=== PATIENT | female | born 1940 | race Caucasian/White ===

== ENCOUNTER → 2017-05-21 | Outpatient (CLI) | payer OTHER | LOC: FIMAGING 09:19 | PROVIDERS: ATTEND Internal Medicine | DX: Z12.31 Encounter for screening mammogram for malignant neoplasm of breast (principal) | CPT/HCPCS: G0202 ==

== ENCOUNTER → 2018-05-23 | Outpatient (CLI) | payer OTHER | LOC: FIMAGING 12:00 | PROVIDERS: ATTEND Internal Medicine | DX: Z12.31 Encounter for screening mammogram for malignant neoplasm of breast (principal) ==

== ENCOUNTER 2018-07-29 08:45 | Observation (INO) | payer OTHER ==
[2018-07-29] MEDS ORDERED: ceFAZolin 2 GM/DEXTROSE 100 ML IV ONE (09:12)
--- NOTE | 2018-07-29 09:17 | EDPHY ---
H & P Stated Complaint: FELL WALKING DOG ? OPEN FX L 5TH DIGIT/HIT HEAD/?SYNCOPE POST - Personal History Current Tetanus Diphtheria and Acellular Pertussis (TDAP): Yes - Medical/Surgical History Hx Asthma: No Hx Chronic Respiratory Disease: No Hx Diabetes: No Hx Cardiac Disease: No Hx Renal Disease: No Hx Cirrhosis: No Hx Alcoholism: No Hx HIV/AIDS: No Hx Splenectomy or Spleen Trauma: No Other PMH: neg - Social History Smoking Status: Never smoked Time Seen by Provider: 07/29/18 08:57 HPI/ROS: CHIEF COMPLAINT: Head injury, left hand injury HISTORY OF PRESENT ILLNESS: 78-year-old female arrives via private vehicle complaining primarily of left 5th digit injury. She reports that approximately 8:10 a.m. this morning she was walking her dog, was looking at her phone, she sustained a mechanical fall impacting her left hand and had a noted laceration and visible osseous structures to the left 5th digit palmar aspect. She thinks that she may have impacted her head. She went home and few minutes later her found her laying on the floor after he heard an audible "thump". Patient was noted to have a frontal hematoma. No repetitive questioning or postictal behavior. No seizure. There are no prolonged periods of immobility on the floor. She is not currently complaining of headache. She denies midline C-spine pain. Denies alcohol or drug use. Denies chest pain. Denies dyspnea. PRIMARY CARE PROVIDER: Dr. Cata Gomez REVIEW OF SYSTEMS: 10 systems reviewed and negative with the exception of the elements mentioned in the history of present illness PAST MEDICAL/SURGICAL HISTORY: no anticoagulant use, no relevant medical/ surgical history SOCIAL HISTORY: denies alcohol use at time of incident PHYSICAL EXAM 1) GENERAL: Well-developed, well-nourished, alert and oriented. Appears to be in no acute distress. Answering questions appropriately. 2) HEAD: [Normocephalic, frontal hematoma noted 3) HEENT: Pupils equal, round, reactive to light bilaterally. Negative Horners. Nasopharynx, oropharynx, clear. No deformity or angulation of nose. No septal hematoma. No rhinorrhea. No oral trauma. Ears bilaterally with normal tympanic membranes. No hemotympanum. No fluid or blood in the external auditory canal. No raccoon eyes. No Urban sign. Teeth are normally aligned with no gross malocclusion, TMJ bilaterally nontender, facial bones nontender including the zygomatic arch, maxilla mandible. 4) NECK: No cervical collar is on. Posterior cervical spine is nontender, no stepoff, no effusion. Full range of motion which does not elicit any midline cervical spine pain, no posterior midline tenderness, no step-off. 5) LUNGS: Clear to auscultation bilaterally, no wheezes, no rhonchi, no retractions. No obvious signs of trauma. No chest wall pain. No flaring, no grunting. Moving symmetrically. No crepitus. 6) HEART: [Regular rate and rhythm, 7) ABDOMEN: No guarding, no rebound, no focal tenderness, no peritoneal signs, no signs of trauma, no ecchymosis 8) MUSCULOSKELETAL: Left hand: Palmar aspect left 5th digit laceration and visible osseous structures. Otherwise, Moving all extremities, no focal areas of tenderness, no obvious trauma. 9) BACK: No midline vertebral tenderness, no fluctuance, no step-off, no obvious trauma, no visual or palpable abnormality. 10) SKIN: Laceration left 5th digit DIFFERENTIAL DIAGNOSIS: Not necessarily in any particular order, my differential diagnosis includes, but is not limited to, concussion, skull fracture, intraparenchymal contusion, subarachnoid, subdural and epidural hematoma. The patient understands that this diagnosis is provisional and can never be 100% accurate. (Lorena Drake) Constitutional: Initial Vital Signs Temperature (C) 36.5 C 07/29/18 08:53 Heart Rate 73 07/29/18 08:53 Respiratory Rate 16 07/29/18 08:53 Blood Pressure 156/78 H 07/29/18 08:53 O2 Sat (%) 98 07/29/18 08:53 O2 Delivery Mode Room Air Allergies/Adverse Reactions: No Known Allergies Allergy (Verified 07/29/18 08:52) Home Medications: Medication Instructions Recorded Aspirin [Aspirin 81mg (*)] 81 mg PO DAILY 07/29/18 Ibuprofen [Motrin (*)] 600 mg PO Q6HRS PRN tab 07/29/18 oxyCODONE IR [Oxycodone Ir (*)] 5 mg PO Q4HRS PRN #10 tab 07/29/18 Medical Decision Making - Diagnostics EKG Interpretation: 12-lead EKG interpreted by me; official reading is in computer system. My interpretation is sinus rhythm rate 66 normal intervals and no ischemic changes (Shlomo Kingsley) Imaging Results: Imaging Impressions Chest X-Ray 07/29/18 09:11 Impression: No acute findings in the chest. Hand X-Ray 07/29/18 09:11 Impression: Dislocation of the 5th proximal interphalangeal joint, possibly open. Head CT 07/29/18 09:12 Impression: 1. Right frontal scalp hematoma with no acute intracranial findings. 2. Diffuse cerebral atrophy with periventricular and subcortical low attenuation consistent with chronic microvascular ischemic gliosis. Findings discussed with Lorena Drake 07/29/2018 at 10:25. Hand X-Ray 07/29/18 10:36 Impression: Interval reduction of 5th proximal interphalangeal joint dislocation , with mild dorsal angulation with no visible fracture. Imaging Impressions Chest X-Ray 07/29/18 09:11 Impression: No acute findings in the chest. Hand X-Ray 07/29/18 09:11 Impression: Dislocation of the 5th proximal interphalangeal joint, possibly open. Head CT 07/29/18 09:12 Impression: 1. Right frontal scalp hematoma with no acute intracranial findings. 2. Diffuse cerebral atrophy with periventricular and subcortical low attenuation consistent with chronic microvascular ischemic gliosis. Findings discussed with Lorena Drake 07/29/2018 at 10:25. Hand X-Ray 07/29/18 10:36 Impression: Interval reduction of 5th proximal interphalangeal joint dislocation , with mild dorsal angulation with no visible fracture. Images reviewed myself (Lorena Drake) Procedures: 10:30 a.m.: Procedure: Dislocation reduction. The dislocation of the left 5th digit was reduced using traction and counter traction technique without complications. Post reduction the patient's neurovascular exam is normal. Post reduction x-ray demonstrates reduction of the joint to the anatomic position. The procedure was performed by myself. 11:29 a.m.: Procedure: Laceration repair. I explained the indications, risks and benefits for both laceration repair and anesthetic administration. Verbal consent was obtained from the patient. The laceration on the left 5th digit was anesthetized using 0.5% bupivicaine without epinephrine digital nerve block. After anesthetic administered the patient was observed for a period of time and had no apparent adverse effects. The wound was cleaned, prepped, draped in normal sterile fashion and explored to its base. No foreign body seen, no foreign bodies palpated. There were no deep structures involved. No tendon injury was identified. The wound was closed with 4 simple interrupted 5 O Prolene suture. The wound repair was simple. The procedure was performed by myself. Patient has been informed that scarring will occur, although efforts have been made to minimize this. Procedure: Splint A and aluminum finger splint was applied by ER ergonomics technician. After application of the splint I returned and re-examined the patient. The splint was adequately immobilizing the joint and distal to the splint the patient's circulation and sensation were intact. (Lorena Drake) ED Course/Re-evaluation: 9:16 a.m.: Patient is complaining of hand injury as well as syncopal episode. I think that vasovagal syncope secondary to her fracture is less than likely as she describes a discrete period of time, 20-30 minutes after the injury that she was found on the floor by her and also notes that she was experiencing minimal amount of pain. Head CT ordered in this patient for trauma for the following indication: Greater than 65 years old. 11:00 a.m.: Re-evaluation. Recommend patient be admitted for syncope which I think is less than likely secondary to vasovagal syncope. 11:20 a.m.: Consultation with hospitalist Joanne, admit to PCU Dr. Maki for evaluation of syncope 11:24 a.m.: Consultation with on-call hand surgery Dr. Melissa Alfonso who recommended irrigation and wound reapproximation, splinting, antibiotics, follow up in the office later this week as no inpatient orthopedic management indicated at this time. (Lorena Drake) - Data Points Laboratory Results: Laboratory Results 07/29/18 10:43 07/29/18 09:50 07/29/18 07/29/18 07/29/18 10:43 09:58 09:50 WBC 5.59 10^3/uL 10^3/uL (3.80-9.50) RBC 4.54 10^6/uL 10^6/uL (4.18-5.33) Hgb 14.7 g/dL g/dL (12.6-16.3) Hct 43.1 % % (38.0-47.0) MCV 94.9 fL fL (81.5-99.8) MCH 32.4 pg pg (27.9-34.1) MCHC 34.1 g/dL g/dL (32.4-36.7) RDW 12.0 % % (11.5-15.2) Plt Count 220 10^3/uL 10^3/uL (150-400) MPV 10.7 fL fL (8.7-11.7) Neut % (Auto) 71.0 % % (39.3-74.2) Lymph % (Auto) 16.8 % % (15.0-45.0) [place] % (Auto) 8.9 % % (4.5-13.0) Eos % (Auto) 2.1 % % (0.6-7.6) Baso % (Auto) 0.7 % % (0.3-1.7) Nucleat RBC Rel Count 0.0 % % (0.0-0.2) Absolute Neuts (auto) 3.96 10^3/uL 10^3/uL (1.70-6.50) Absolute Lymphs (auto) 0.94 10^3/uL L 10^3/uL (1.00-3.00) Absolute Monos (auto) 0.50 10^3/uL 10^3/uL (0.30-0.80) Absolute Eos (auto) 0.12 10^3/uL 10^3/uL (0.03-0.40) Absolute Basos (auto) 0.04 10^3/uL 10^3/uL (0.02-0.10) Absolute Nucleated RBC 0.00 10^3/uL 10^3/uL (0-0.01) Immature Gran % 0.5 % % (0.0-1.1) Immature Gran # 0.03 10^3/uL 10^3/uL (0.00-0.10) Sodium 140 mEq/L mEq/L (135-145) Potassium 4.4 mEq/L mEq/L (3.3-5.0) Chloride 106 mEq/L mEq/L (97-110) Carbon Dioxide 23 mEq/l mEq/l (22-31) Anion Gap 11 mEq/L mEq/L (8-16) BUN 23 mg/dL mg/dL (7-23) Creatinine 0.7 mg/dL mg/dL (0.6-1.0) Estimated GFR > 60 Glucose 95 mg/dL mg/dL (70-100) Calcium 9.2 mg/dL mg/dL (8.5-10.4) POC Troponin I 0.00 ng/mL ng/mL (0.00-0.08) 07/29/18 09:50 WBC REJ RBC TNP Hgb TNP Hct TNP MCV TNP MCH TNP MCHC TNP RDW TNP Plt Count TNP MPV TNP Neut % (Auto) TNP Lymph % (Auto) TNP [place] % (Auto) TNP Eos % (Auto) TNP Baso % (Auto) TNP Nucleat RBC Rel Count TNP Absolute Neuts (auto) TNP Absolute Lymphs (auto) TNP Absolute Monos (auto) TNP Absolute Eos (auto) TNP Absolute Basos (auto) TNP Absolute Nucleated RBC TNP Immature Gran % TNP Immature Gran # TNP Sodium Potassium Chloride Carbon Dioxide Anion Gap BUN Creatinine Estimated GFR Glucose Calcium POC Troponin I Medications Given: Discontinued Medications Cefazolin Sodium/Dextrose (Ancef 2 Gm) 100 mls @ 200 mls/hr IV EDNOW ONE PRN Reason: Protocol Stop: 07/29/18 09:41 Last Admin: 07/29/18 09:35 Dose: 100 mls Influenza Virus Vaccine Quadrival (Flulaval Quad [id number] (6mo+)) 0.5 ml IM .ONCE ONE Stop: 07/29/18 14:33 Last Admin: 07/29/18 14:52 Dose: 0.5 ml Point of Care Test Results: Chemistry 07/29/18 09:58 POC Troponin I 0.00 ng/mL ng/mL (0.00-0.08) Departure - Departure Disposition: [facility] ([place], [place])s Inpatient Acute Clinical Impression: Syncope and collapse, Open dislocation left 5th digit Head injury due to trauma Qualifiers: Encounter type: initial encounter Qualified Code(s): S09.90XA - Unspecified injury of head, initial encounter Condition: Fair
--- NOTE | 2018-07-29 10:37 | CPEKG ---
Test Reason : OPEN Blood Pressure : / mmHG Vent. Rate : 066 BPM Atrial Rate : 066 BPM P-R Int : 165 ms QRS Dur : 088 ms QT Int : 411 ms P-R-T Axes : 047 000 022 degrees QTc Int : 431 ms Sinus rhythm Confirmed by Shlomo Kingsley ([id number]) on 07/29/2018 10:37:18 AM Referred By: Confirmed By:Shlomo Kingsley
[2018-07-29 11:03] LABS: PLATELET COUNT 220 10^3/uL (150-400)
[2018-07-29] MEDS ORDERED: ONDANSETRON DISINTEGRATING 4 MG TAB PO PRN (13:08)
[2018-07-29] MEDS ORDERED: ACETAMINOPHEN 325 MG TAB PO PRN (13:08)
[2018-07-29] MEDS ORDERED: ONDANSETRON 4 MG/2 ML VIAL IVP PRN (13:08)
[2018-07-29] MEDS ORDERED: oxyCODONE IR 5 MG TAB PO PRN (14:13)
[2018-07-29] MEDS ORDERED: IBUPROFEN 600 MG TAB PO PRN (14:13)
--- NOTE | 2018-07-29 14:47 | GHP ---
DATE OF ADMISSION: 07/29/2018 CHIEF COMPLAINT: Fall. HISTORY: This is a 78-year-old female with really minimal past medical history, who presents status post fall and then subsequent syncopal event. Patient notes that she was out walking her neighbor's dog, when she was looking at her phone and tripped over the sidewalk. She fell onto her left side an d had suffered a significant injury to her left hand and particularly her left 5th digit, where she w as able to see bone. She immediately did not feel well and felt worse looking at her finger. She de cided she had better walk back to the house and lie down in bed. She was almost to her bed when she lost consciousness and fell to the floor. At that time, she hit her head on the floor. Her heard her hit the floor and came up to check on her. She notes she immediately felt back to normal a fter fainting. She has never fainted before. She did not have any chest pain preceding or following this event. She currently feels fine, has walked several times since this incident without any issu es. PAST MEDICAL HISTORY: Denies. PAST SURGICAL HISTORY: Denies. SOCIAL HISTORY: Patient is a nonsmoker. She lives with her . She drinks alcohol rarely, not today. FAMILY HISTORY: Parents are . REVIEW OF SYSTEMS: 10-point review of systems obtained and negative except as per HPI. HOME MEDICATIONS: Include daily aspirin. ALLERGIES: No known drug allergies. PHYSICAL EXAM: VITAL SIGNS: BP 149/72, heart rate 75, respiratory rate 20, O2 sats 98% on room air, temperature is 36.6. GENERAL APPEARANCE: This is an elderly female. She is awake and al ert. She is in no acute distress. EYES: Anicteric. HENT: There is an area of swelling above her right orbit, otherwise atraumatic. Oropharynx is clear. CARDIOVASCULAR: Regular rate and rhythm, n o MRG. PULMONARY: CTA bilaterally. Normal work of breathing. ABDOMEN: Soft, nontender, nondisten ded. EXTREMITIES: No clubbing, cyanosis or edema. There is a splint on her left 5th digit and some scattered bruises on her left side. EXTREMITIES: No clubbing, cyanosis or edema. SKIN: Warm, dry , well perfused. NEURO/PSYCH: Oriented, appropriate, pleasant. CLINICAL DATA: Labs reviewed, notable for a white blood cell count of 5.5, hematocrit 43. Troponin is 0.00. Chemistry is within normal limits. Chest x-ray, personally reviewed and interpreted, shows no acute findings. EKG, personally reviewed and interpreted, shows sinus rhythm without any ischemic changes. Shoulder x-ray shows no fractures, normal alignment. Hand x-ray post relocation of the finger shows relatively normal alignment of the digit with mild bethany mark angulation and no fracture noted. Head CT unremarkable. ASSESSMENT AND PLAN: This is a 78-year-old female who suffered a fall with a dislocated finger, now status post reduction and suturing of laceration, with a post-fall syncopal event. 1. Syncope. This sounds to be most likely secondary to vasovagal event in the setting of severe diego n and deformed finger. She feels fine since then. She feels that this was related to the pain and s hock of seeing her finger in such a way, as she felt woozy immediately after seeing her finger lookin g like that. Troponin is negative and EKG and chest x-ray are unremarkable. Will obtain an echocard iogram and if this looks normal, will discharge the patient home. 2. Dislocated finger. This is now status post reduction. She will need followup with a hand surgeo n. She has seen Thony Henao in the past and will refer her to him again for further evaluation. 3. Head injury without real signs of concussion and a negative head CT. Discussed with patient that she should monitor her symptoms and if anything changes, she should follow up with her PCP for furth er evaluation. 4. Disposition. Observation status. Suspect that so long as patient is ambulating normally and ech ocardiogram comes back normal, she will be able to discharge home later today. /[id number]/MODL
[2018-07-29 16:06] VITALS: BP 153/77
--- NOTE | 2018-07-29 17:10 | ECHO ---
[email or web address] [address] Main: [phone] Fax: Transthoracic Echocardiogram Name: MASON YEBOAH MR#: [id number] Study Date: 07/29/2018 Study Time: 01:25 PM Date of : 1940 Age: 78 year(s) Height: 162.6 cm (64 in.) Weight: 63.96 kg (141 lb.) BSA: 1.69 m2 Gender: Female Examination: Echo Indication: Cardiac: syncope, recurrent Image Quality: Adequate Contrast: Requested by: Arnie Maki BP: 149 mmHg/72 mmHg Heart Rate: Rhythm: Indication: Cardiac: syncope, recurrent Procedure Staff Manager Ui: Megan Jacob [facility] Reading Physician: Ron Carpio MD Requesting Provider: Conclusions: Normal size left ventricle. No LV hypertrophy. Normal global systolic LV function. EF is 60 %. Normal RV function. The mitral valve is normal in appearance and function. Mild mitral valve leaflet calcification is present. Mild mitral valve regurgitation is present. There is no significant aortic valve regurgitation. No aortic valve stenosis is present. Mild to moderate tricuspid valve regurgitation. The pulmonary artery pressure is mildly increased. No previous. Measurements: Chambers Valvular Assessment AV/MV Valvular Assessment TV/PV Normal Normal Normal Name Value Range Name Value Range Name Value Range Ao Celi (2D): 2.8 cm (1.4 cm-2.6 AV Vmax: 1.40 m/s (1 m/s-1.7 TR Vmax: 2.90 mm/s ( - ) cm) m/s) TR PGmax: 34 mmHg ( - ) IVSd (2D): 1.1 cm (0.6 cm-1.1 AV maxP mmHg ( - ) syst. PAP: 39 mmHg ( - ) cm) AV meanP mmHg ( - ) PV Vmax: 1.11 m/s (0.6 m/s-0.9 LVDd (2D): 3.4 cm (3.9 cm-5.3 MICAELA (VTI): 3.4 cm ( - ) m/s) cm) MV E Vmax: 0.45 m/s ( - ) PV PGmax: 5 mmHg ( - ) LVDs (2D): 2.2 cm (2.1 cm-4 MV A Vmax: 0.95 m/s ( - ) cm) MV E/A: 0.47 ( - ) LVPWd (2D): 1.0 cm ( - ) MV PHT: 0.095 s ( - ) LVOTd 2.0 cm 2.0 cm mm MVA (PHT): 2.3 s ( - ) LVEF (BP): 60 % (>=55 %) Patient: MASON YEBOAH Study Date: 07/29/2018 Page 1 of 2 01:25 PM RVDd(2D): 3.6 cm (1.9 cm-3.8 cmmm) Continued Measurements: Chambers Valvular Assessment AV/MV Valvular Assessment TV/PV Name Value Name Value Name Value LADs: 3.1 cm MV DecTime: 317 m/s CVP (est.): 5 mmHg LADs Lon.4 cm MV E' Septal: 0.08 m/s LA Area: 11.9 cm2 MV E/E' Septal: 5.50 LA Volume: 38 ml MV E/E' Lateral: 6.60 LA Volume Index: 22.5 ml/m2 RA Area: 13.4 cm2 Additional Vessels Name Value Ao Ascendin.6 cm Inferior Vena Cava: 1.2 cm Findings: Left Ventricle: Normal size left ventricle. No LV hypertrophy. Normal global systolic LV function. EF is 60 %. No regional wall motion abnormality. Unable to assess diastolic dysfunction. Right Ventricle: Normal size right ventricle. Normal RV function. Left Atrium: The left atrium is normal in size. Right Atrium: The right atrium is normal in size. Mitral Valve: The mitral valve is normal in appearance and function. Mild mitral valve leaflet calcification is present. Mild mitral valve regurgitation is present. No mitral stenosis is present. Aortic Valve: The aortic valve is tri-leaflet. Aortic sclerosis is present. There is no significant aortic valve regurgitation. No aortic valve stenosis is present. Tricuspid Valve: The tricuspid valve is normal in appearance and function. Mild to moderate tricuspid valve regurgitation. The pulmonary artery pressure is mildly increased. Right ventricular systolic pressure measures 39mmHg. Pulmonic Valve: The pulmonic valve is normal in appearance and function. There is no pulmonic regurgitation seen. Aorta: The aorta is normal. Normal size aortic root measuring 2.8 cm. Normal size ascending aorta measuring 2.6 cm. IVC: The IVC is normal sized. Pericardium: No pericardial effusion. No pleural effusion. (No Signature Object) Patient: MASON YEBOAH Study Date: 07/29/2018 Page 2 of 2 01:25 PM [id number]
[2018-07-30] MEDS ORDERED: ASPIRIN 81 MG CHEWABLE TAB PO SCH (09:00)
== END 2018-07-29 17:31 | disposition home or self-care (01) ==
LOC: F2W 12:16
PROVIDERS: ADMIT Internal Medicine; ATTEND Internal Medicine
DX: S63.287A Dislocation of proximal interphalangeal joint of left little finger, initial encounter (principal); S61.217A Laceration without foreign body of left little finger without damage to nail, initial encounter; S00.83XA Contusion of other part of head, initial encounter; W01.198A Fall on same level from slipping, tripping and stumbling with subsequent striking against other object, initial encounter; Y93.K1 Activity, walking an animal; Y92.89 Other specified places as the place of occurrence of the external cause; Z23 Encounter for immunization; R55 Syncope and collapse
CPT/HCPCS: 12001; 26770; 70450; 71046; 73030; 73130; 90686; 93005; 93306; 96365; 96372; 99285; G0008; G0378; J0690; 84484-PO